=== PATIENT | male | born 1970 | race Caucasian/White ===

== ENCOUNTER 2017-03-22 16:18 | Emergency (ER) | payer SELFPAY ==
[~2017-03-22] VITALS: Ht 190.5 cm; Wt 128.0 kg
[2017-03-22 16:23] VITALS: Ht 190.5 cm; Wt 128.0 kg
== END 2017-03-22 21:33 | disposition left against medical advice (07) ==
LOC: E/R 16:18
DX: Z53.21 Procedure and treatment not carried out due to patient leaving prior to being seen by health care provider (principal)